=== PATIENT | female | born 1990 | race Caucasian/White ===

== ENCOUNTER 2021-08-13 20:15 | Emergency (ER) | payer MEDICAID ==
[~2021-08-13] VITALS: Ht 162.6 cm; Wt 90.3 kg
[2021-08-13 20:42] VITALS: BP 158/81
--- NOTE | 2021-08-13 21:44 | NUR ---
Blood for labwork drawn from left arm per director intelligence analysis programs. Patient tolerated well.
[2021-08-13 21:57] LABS: BASOPHILS % (AUTO) 0.5 % (0.0-2.0); EOSINOPHILS # (AUTO) 0.3 K/uL (0-0.4); EOSINOPHILS % (AUTO) 3.4 % (0.0-4.0); HEMATOCRIT 35.4 % (36-48); HEMOGLOBIN 11.2 g/dL (12.0-16.0); LYMPHOCYTES # (AUTO) 2.7 K/uL (2.5-16.5); LYMPHOCYTES % (AUTO) 31.6 % (20.5-51.1); MEAN CORPUSCULAR HEMOGLOBIN 24 pg (27-31); MEAN CORPUSCULAR HGB CONC 32 g/dL (33-37); MEAN CORPUSCULAR VOLUME 77.1 fL (80-94); MONOCYTES # (AUTO) 0.9 K/uL (0.8-1.0); MONOCYTES % (AUTO) 10.8 % (1.7-9.3); NEUTROPHILS # (AUTO) 4.6 K/uL (1.8-7.7); NEUTROPHILS % (AUTO) 53.7 % (42.2-75.2); PLATELET COUNT (AUTO) 147 K/uL (140-450); RED BLOOD CELL COUNT(AUTO) 4.59 MIL/uL (4.20-5.40); RED CELL DISTRIBUTION WIDTH 19.5 % (11.6-13.7); WHITE BLOOD COUNT (AUTO) 8.5 K/uL (4.8-10.8)
--- NOTE | 2021-08-13 22:07 | NUR ---
PT TAKEN TO BED 9
[2021-08-13 22:17] LABS: ANION GAP 14.7 (8-16); CARBON DIOXIDE 25.5 mmol/L (21-32); CHLORIDE 99 mmol/L (98-107); CREATININE 0.8 mg/dL (0.6-1.3); GFR ARICAN-AMERICAN 110 mL/min (>90); GLUCOSE 101 mg/dL (74-106); POTASSIUM 4.2 mmol/L (3.5-5.1); SODIUM SERUM 135 mmol/L (136-145); UREA NITROGEN, BLOOD 10 mg/dL (7-18)
[2021-08-13 22:23] LABS: ALBUMIN 4.2 g/dL (3.4-5.0); ASPARTATE AMINOTRANSFERASE 45 U/L (15-37); TOTAL BILIRUBIN 0.4 mg/dL (0.0-1.0)
[2021-08-13 22:26] LABS: ACETAMINOPHEN < 0.5 ug/ml (10-30); SALICYLATE < 2.8 mg/dL (2.8-20.0)
--- NOTE | 2021-08-13 22:28 | NUR ---
PATIENT PRESENTS TO ED WITH ETOH WITHDRAW. PT STATES HER LAST DRINK WAS YESTERDAY AND SHE DRINKS 20 BEERS A DAY FOR THE LAST 6 MONTHS. PATIENT STATES SHE IS GOING THROUGH WITHDRAWL, SHE STATES THIS ISNT THE 1ST TIME SHE HAS TRIED TO QUIT DRINKING. DENIES AH/VH, DENIES V/D; SKIN IS PINK/WARM/DRY; AAOX4 WITH EVEN AND STEADY GAIT; PATIENT HAS TREMORS; VSS; PATIENT STATES SHE HAS NO SUPPORT SYSTEM. PATIENT POSITIONED FOR COMFORT; HOB ELEVATED; BEDRAILS UP X2; BED DOWN. ER MD MADE AWARE OF PT STATUS. MED HX: ANXIETY, ALCHOLISM NKDA
--- NOTE | 2021-08-13 22:40 | NUR ---
patient ambulated to the bathroom with a steady gait for urine collection.
[2021-08-13 23:10] LABS: BARBITURATE, URINE NEGATIVE ng/ml (NEG <=200); BENZODIAZEPINE, URINE POSITIVE ng/mL (NEG <=200); CANNABINOID, URINE NEGATIVE ng/mL (NEG <=50); COCAINE, URINE NEGATIVE ng/mL (NEG <=300); OPIATE, URINE NEGATIVE ng/mL (NEG <=2000); PHENCYCLIDINE SCREEN,URINE NEGATIVE ng/mL (NEG <=25)
--- NOTE | 2021-08-14 00:57 | NUR ---
Dr. Candelaria examining patient.
[2021-08-14] MEDS ORDERED: chlordiazePOXIDE 25 MG CAP PO STA (01:00)
[2021-08-14] MEDS ORDERED: LIB25 PO (01:17)
[2021-08-14 01:31] VITALS: BP 130/79
--- NOTE | 2021-08-14 01:31 | NUR ---
Patient discharged with v/s stable. Written and verbal after care instructions given and explained. Patient alert, oriented and verbalized understanding of instructions. Ambulatory with steady gait. All questions addressed prior to discharge. ID band removed. Patient advised to follow up with PMD. Rx of Librium given. Patient educated on indication of medication including possible reaction and side effects. Opportunity to ask questions provided and answered.
== END 2021-08-14 01:31 | disposition home or self-care (01) ==
LOC: MED 20:15
DX: F10.239 Alcohol dependence with withdrawal, unspecified (principal); F10.229 Alcohol dependence with intoxication, unspecified; Y90.9 Presence of alcohol in blood, level not specified
CPT/HCPCS: 36415; 80053; 80305; 85025; 99283; G0480; G0482

== ENCOUNTER 2021-09-02 13:21 | Emergency (ER) | payer MEDICAID ==
[~2021-09-02] VITALS: Ht 162.6 cm; Wt 91.3 kg
[~2021-09-02 13:21] MED LIST: LIB25 PO
[2021-09-02 13:29] VITALS: BP 117/59
[2021-09-02] MEDS: KETOROLAC 30 MG/ML VIAL IM ONE (14:35)
[2021-09-02] MEDS ORDERED: LID5T TP (15:30)
[2021-09-02] MEDS ORDERED: METH4TAB1 PO (15:30)
[2021-09-02] MEDS ORDERED: CYCL-711 PO (15:30)
[2021-09-02 17:00] VITALS: BP 117/59
== END 2021-09-02 17:00 | disposition home or self-care (01) ==
LOC: MED 13:21
DX: M25.561 Pain in right knee (principal); M25.562 Pain in left knee; M54.50 Low back pain, unspecified; G89.29 Other chronic pain; Z79.899 Other long term (current) drug therapy
CPT/HCPCS: 72100; 73562; 81002; 81025; 96372; 99284; J1885; Q0092

== ENCOUNTER 2022-01-12 16:19 | Emergency (ER) | payer MEDICAID ==
[~2022-01-12] VITALS: Ht 167.6 cm; Wt 90.7 kg
[~2022-01-12 16:19] MED LIST changes: +CYCL-711 PO; +LID5T TP; +METH4TAB1 PO
[2022-01-12 16:23] VITALS: BP 122/62
--- NOTE | 2022-01-12 16:30 | NUR ---
PT TAKEN TO ER BED 4 VIA W/C. FULL ASSISTANCE ONTO BED.
--- NOTE | 2022-01-12 16:38 | NUR ---
31 Y/O FEMALE BIB FOR ETOH. PER PT DRINKS 40 CANS OF BEER/DAY MORE THAN 1 MONTH. PT IS A&OX0, GCS 9. PLACED ON RUBBER OFF. SPO2 87% ON RA, TITRATED TO 2L O2 ON NC, SPO2 97%. ERMD MADE AWARE. PMH: ALCOHOLISM NKA
--- NOTE | 2022-01-12 16:43 | NUR ---
PT TAKEN TO RESTROOM VIA W/C ASSISTANCE.
[2022-01-12] MEDS ORDERED: ONDANSETRON 4 MG/2 ML VIAL IVP ONE ×2 (16:45→21:45)
[2022-01-12] MEDS ORDERED: NACL 0.9% 1,000 ML IV ONE ×2 (16:45→21:45)
--- NOTE | 2022-01-12 16:52 | NUR ---
PT UNABLE TO PROVIDE UA SAMPLE AT THIS TIME. ERMD MADE AWARE. NO STRAIGHT CATH NECESSARY.
[2022-01-12] MEDS ORDERED: ONDANSETRON 4 MG/2 ML VIAL ONE (17:58)
--- NOTE | 2022-01-12 18:12 | NUR ---
PT RESTING IN BED, RR EVEN AND UNLABORED, 2L NC 99%. WILL CONTINUE TO MONITOR.
--- NOTE | 2022-01-12 19:18 | NUR ---
GAVE REPORT TO CLARE BOLAÑOS. TRANSFER OF CARE AT THIS TIME.
--- NOTE | 2022-01-12 20:06 | NUR ---
Caller identifying himself as "Kishor" called asking for information on patient status. Caller not on emergency contact list. Patient asked if she authorizes caller to receive information about her stay. Patient verbalized "It's ok to tell him about me being in the hospital," and sintia requested "to add Kishor to emergency contact list." WILLY Boyd asked to transfer caller to frontload driver to betting agency counter clerk to add caller to patient's emergency contact list so caller can receive information on patient's stay. Caller was transfered to [facility]. blood bank calendar control clerk asked to talk to patient and obtain information to add caller to patient's emergency contact list. blood bank calendar control clerk verbalizerd understanding and is speaking to patient to add caller to emergency contact list. Addendum: 01/12/22 at 2019 by [email or web address] Caller identifying himself as "Kishor" called asking for information on patient status. Caller not on emergency contact list. Patient asked if she authorizes caller to receive information about her stay. Patient verbalized "It's ok to tell him about me being in the hospital," and sintia requested "to add Kishor to emergency contact list." WILLY Boyd asked to transfer caller to frontload driver to betting agency counter clerk to add caller to patient's emergency contact list so caller can receive information on patient's stay. Caller was transfered to [facility]. blood bank calendar control clerk asked to talk to patient and obtain information to add caller to patient's emergency contact list. blood bank calendar control clerk verbalizerd understanding and stated she "will speak to the patient about adding Kishor to the emergency contact list."
--- NOTE | 2022-01-12 20:40 | NUR ---
Patient stated, "I don't know Kishor's number but I would like you to get the number from my , who's on the emergency contact list." Patient's called and Kishor's number received, and Kishor added to emergency contact list per patient's request. Kishor updated on patient's status, no further questions from family member/emergency contact Kishor.
--- NOTE | 2022-01-12 21:45 | NUR ---
Patient able to walk with assistance, strong gait. Dr. Garza verbally informed and Dr. Garza stated, "I feel good discharging her as long as family can take her home." Patient informed of Dr. Garza's statement and patient agrees. Patient's /emergency contact verbally agreed to take patient home and he stated, "I'll take her home and watch her. I'm ok with the plan." Dr. Garza verbally informed patient's at bedside.
[2022-01-12] MEDS ORDERED: LIB25 PO (22:01)
[2022-01-12] MEDS ORDERED: ONDA-188 PO (22:01)
[2022-01-12 22:05] VITALS: BP 105/74
--- NOTE | 2022-01-12 22:09 | NUR ---
Patient discharged with v/s stable. Written and verbal after care instructions given and explained. Patient alert, oriented and verbalized understanding of instructions. Wheel Chair Assisted with to car. All questions addressed prior to discharge. ID band removed. Patient advised to follow up with PMD. Rx of librium and zofran given. Patient educated on indication of medication including possible reaction and side effects. Opportunity to ask questions provided and answered.
== END 2022-01-12 22:09 | disposition home or self-care (01) ==
LOC: MED 16:19
DX: F10.129 Alcohol abuse with intoxication, unspecified (principal); Z79.899 Other long term (current) drug therapy
CPT/HCPCS: 96361; 96374; 96376; 99285; J2405; J7030